=== PATIENT | female | born 1980 | race Caucasian/White ===

== ENCOUNTER 2019-12-12 17:53 | Emergency (ER) | payer BC ==
[2019-12-12] MEDS ORDERED: Sodium Chloride 0.9% 10 ML Syringe FLUSH PRN (18:29)
[2019-12-12] MEDS ORDERED: Sodium Chloride 0.9% 2.5 ML Syringe FLUSH PRN (18:29)
[2019-12-12] MEDS ORDERED: Ketorolac 30 MG/ML SDV IVPUSH ONE (18:30)
[2019-12-12 19:05] LABS: BLOOD UREA NITROGEN,BUN 10 mg/dL (7.0-18.0); CARBON DIOXIDE,CO2 26.6 mmol/L (21.0-32.0); CHLORIDE,CL 102 mmol/L (98-107); GLUCOSE RANDOM 103 mg/dL (74-106); POTASSIUM,K 3.7 mmol/L (3.5-5.1); SODIUM,NA 141 mmol/L (136-145)
--- NOTE | 2019-12-12 19:22 | EDM.PDOC ---
<RayMiguel - Last Filed: 12/13/19 00:53> ED HPI GENERAL MEDICAL PROBLEM - General Chief Complaint: Abdominal Pain Stated Complaint: ABDOMINAL PAIN Time Seen by Provider: 12/12/19 18:05 Source of Information: Reports: Patient History Limitations: Reports: No Limitations - Related Data Allergies Allergy/AdvReac Type Severity Reaction Status Date / Time clonidine HCl [From Catapres] Allergy Rash Verified 12/12/19 18:26 morphine AdvReac Vomiting Verified 12/12/19 18:26 Home Meds: Home Meds Levothyroxine 25 mcg PO DAILY 12/12/19 [History] Prazosin HCl [Prazosin] 2 mg PO DAILY 12/12/19 [History] Sertraline [Zoloft] 150 mg PO DAILY 12/12/19 [History] methylPREDNISolone [Medrol] 4 mg PO DAILY 12/12/19 [History] Social & Family History - Family History Family Medical History: Noncontributory ED ROS GENERAL - Review of Systems Review Of Systems: See Below ED EXAM, GI/ABD - Physical Exam Exam: See Below Course - Vital Signs Text/Narrative:: I assumed care of this patient at [address] Felipe. In brief, this is a 39-year-old female who is approximately 3 weeks status post laparoscopic hysterectomy. She presents to the emergency department complaining of midline abdominal pain and a gush of vaginal fluids after tripping. Labs reassuring. Given Toradol prior to my arrival. Awaiting CT imaging of the abdomen/pelvis. I reviewed the labs. Urinalysis shows trace leukocyte esterase and trace blood but the patient has no symptoms of cystitis. Other labs are reassuring. I gave some fentanyl for pain with good relief. I reexamined the patient, abdomen is soft and nondistended. CT abdomen/pelvis shows a small amount of free fluid in the pelvis, but otherwise no evidence of a postoperative complication. I did perform a pelvic examination with a speculum (with an RN hand rug cleaner), I did not note any drainage, fluid, or bleeding. I spoke with our on-call REPACKER Dr. Santos at 2210 who feels that the fluid leakage is likely postoperative after irrigation that was instilled during the surgery. He is reassured that the patient is afebrile, has no leukocytosis, and has no radiographic evidence of a complication on CT scans. We will plan to discharge her home. She states that she has leftover ibuprofen and Percocet and wants to take these medications at home. She will follow-up with her OB/ FINANCIAL ADMINISTRATOR in [place] in the next few weeks at her scheduled appointment. Strict ED return precautions were provided. Last Recorded V/S: Last Vital Signs Temp 98.2 F 12/12/19 22:30 Pulse 72 12/12/19 22:30 Resp 18 12/12/19 22:30 BP 133/82 12/12/19 22:30 Pulse Ox 98 12/12/19 22:30 - Orders/Labs/Meds Orders: Active Orders 24 hr Category Date Time Status Pelvic Exam, Set Up [RC] ASDIRECTED Care 12/12/19 20:51 Active Saline Lock Insert [OM.PC] Stat Oth 12/12/19 18:29 Ordered Labs: Laboratory Tests 12/12/19 12/12/19 12/12/19 Range/Units 18:20 18:30 18:30 WBC 9.81 (4.0-11.0) K/uL RBC 4.92 (4.30-5.90) M/uL Hgb 15.2 (12.0-16.0) g/dL Hct 45.9 (36.0-46.0) % MCV 93.3 (80.0-98.0) fL MCH 30.9 (27.0-32.0) pg MCHC 33.1 (31.0-37.0) g/dL RDW Std Deviation 44.6 (28.0-62.0) fl RDW Coeff of Nevaeh 13 (11.0-15.0) % Plt Count 323 (150-400) K/uL MPV 10.20 (7.40-12.00) fL Neut % (Auto) 55.1 (48.0-80.0) % Lymph % (Auto) 37.7 (16.0-40.0) % [place] % (Auto) 6.3 (0.0-15.0) % Eos % (Auto) 0.7 (0.0-7.0) % Baso % (Auto) 0.2 (0.0-1.5) % Neut # (Auto) 5.4 (1.4-5.7) K/uL Lymph # (Auto) 3.7 H (0.6-2.4) K/uL [place] # (Auto) 0.6 (0.0-0.8) K/uL Eos # (Auto) 0.1 (0.0-0.7) K/uL Baso # (Auto) 0.0 (0.0-0.1) K/uL Nucleated RBC % 0.0 /100WBC Nucleated RBCs # 0 K/uL Sodium 141 (136-145) mmol/L Potassium 3.7 (3.5-5.1) mmol/L Chloride 102 (98-107) mmol/L Carbon Dioxide 26.6 (21.0-32.0) mmol/L BUN 10 (7.0-18.0) mg/dL Creatinine 0.8 (0.6-1.0) mg/dL Est Cr Clr Drug Dosing 93.63 mL/min Estimated GFR (MDRD) > 60.0 ml/min Glucose 103 (74-106) mg/dL Calcium 8.9 (8.5-10.1) mg/dL Total Bilirubin 0.4 (0.2-1.0) mg/dL AST 21 (15-37) IU/L ALT 46 (14-63) IU/L Alkaline Phosphatase 63 (46-116) U/L Total Protein 7.7 (6.4-8.2) g/dL Albumin 4.4 (3.4-5.0) g/dL Globulin 3.3 (2.6-4.0) g/dL Albumin/Globulin Ratio 1.3 (0.9-1.6) Urine Color YELLOW Urine Appearance SLT CLOUDY Urine pH 7.0 (5.0-8.0) Ur Specific [place] 1.020 (1.001-1.035) Urine Protein NEGATIVE (NEGATIVE) mg/dL Urine Glucose (UA) NEGATIVE (NEGATIVE) mg/dL Urine Ketones NEGATIVE (NEGATIVE) mg/dL Urine Occult Blood TRACE-INTACT H (NEGATIVE) Urine Nitrite NEGATIVE (NEGATIVE) Urine Bilirubin NEGATIVE (NEGATIVE) Urine Urobilinogen 0.2 (<2.0) EU/dL Ur Leukocyte Esterase TRACE H (NEGATIVE) Urine RBC 1-3 (0-2/HPF) Urine WBC 3-6 (0-5/HPF) Ur Epithelial Cells MODERATE (NONE-FEW) Urine Bacteria FEW (NEGATIVE) Meds: Medications Discontinued Medications Generic Name Dose Route Start Last Admin Trade Name Freq PRN Reason Stop Dose Admin Fentanyl 50 mcg 12/12/19 20:50 12/12/19 21:17 Fentanyl IVPUSH 12/12/19 20:51 50 mcg ONETIME ONE Administration Iopamidol 100 ml 12/12/19 19:55 12/12/19 19:58 Isovue Multipack-370 (76%) IVPUSH 12/12/19 19:56 100 ml ONETIME STA Administration Ketorolac Tromethamine 30 mg 12/12/19 18:30 12/12/19 18:49 Toradol IVPUSH 12/12/19 18:31 15 mg ONETIME ONE Administration Sodium Chloride 10 ml 12/12/19 18:29 12/12/19 18:50 Saline Flush FLUSH 10 ml ASDIRECTED PRN Administration Keep Vein Open Sodium Chloride 2.5 ml 12/12/19 18:29 12/12/19 18:50 Saline Flush FLUSH 2.5 ml ASDIRECTED PRN Administration Keep Vein Open Departure - Departure Time of Disposition: 22:21 Disposition: Home, Self-Care 01 Condition: Good Clinical Impression: Post-operative pain - Discharge Information *PRESCRIPTION DRUG MONITORING PROGRAM REVIEWED*: Not Applicable *COPY OF PRESCRIPTION DRUG MONITORING REPORT IN PATIENT MAXINE: Not Applicable Instructions: Acute Pain, Adult Referrals: PCP,None [Primary Care Provider] - (Follow-up with your REPACKER at your neck scheduled appointment.) Forms: ED Department Discharge Additional Instructions: Thank you for choosing the [facility] emergency department in [place] for your medical needs today. It was a pleasure caring for you. You were seen in the emergency department for abdominal pain and vaginal fluid leakage. We suspect that this is due to the fluid that was placed during her surgery. Your blood work, urinalysis, and CT scans are reassuring. I recommend that you take your prescribed ibuprofen and Percocet as needed at home. Follow-up with your REPACKER and your scheduled appointment. Return to the emergency department immediately if your symptoms worsen. Please return the emergency department immediately if your symptoms worsen or if you feel worse. The following information is given to patients seen in the emergency department who are being discharged. This information is to outline your options for follow -up care. We provide all patients seen in our emergency department with a follow -up referral. The need for follow-up, as well as the timing and circumstances, are variable depending upon the specifics of your emergency department visit. If you don't have a primary care physician on staff, we will provide you with a referral. We always advise you to contact your personal physician following an emergency department visit to inform them of the circumstance of the visit and for follow-up with them and/or the need for any referrals to a consulting specialist. The emergency department will also refer you to a specialist when appropriate. This referral assures that you have the opportunity for follow-up care with a specialist. All of these measure are taken in an effort to provide you with optimal care, which includes your follow-up. Under all circumstances we always encourage you to contact your private physician who remains a resource for coordinating your care. When calling for follow-up care, please make the office aware that this follow-up is from your recent emergency room visit. If for any reason you are refused follow-up, please contact the [facility] Emergency Department at and asked to speak to the emergency department charge nurse. If you do not have a primary care physician that is caring for you, you can contact these clinics below to set up an appointment to establish care: [facility] [address] [place] [id number] [address] [address] Sepsis Event Note (ED) - Focused Exam Vital Signs: Vital Signs Temp Pulse Resp BP Pulse Ox 12/12/19 22:30 98.2 F 72 18 133/82 98 12/12/19 21:17 82 18 134/76 97 - My Orders Last 24 Hours: My Active Orders 12/12/19 18:29 Saline Lock Insert [OM.PC] Stat - Assessment/Plan Last 24 Hours: My Active Orders 12/12/19 18:29 Saline Lock Insert [OM.PC] Stat <Ekta Felipe - Last Filed: 12/13/19 07:28> ED HPI GENERAL MEDICAL PROBLEM - History of Present Illness INITIAL COMMENTS - FREE TEXT/NARRATIVE: History of present illness: 39-year-old female presenting with lower abdominal pain starting shortly prior to arrival here. She reports she was walking, tripped over her dog and caught herself but suddenly had lower abdominal pain. She did not strike her abdomen or any other part. She did not actually fall. Shortly thereafter she had a large amount of fluid leak from her vagina and then started to develop some vaginal bleeding. [employer] than a period. 3 weeks ago she had a hysterectomy. Review of systems: As per history of present illness and below otherwise all systems reviewed and negative. Past medical history: As per history of present illness and as reviewed below otherwise noncontributory. Surgical history: As per history of present illness and as reviewed below otherwise noncontributory. To me Social history: No reported history of drug or alcohol abuse. Family history: As per history of present illness and as reviewed below otherwise noncontributory. Physical exam: GEN: no acute distress, well appearing HEENT: Atraumatic, normocephalic, mucous membranes moist, Neck: supple, nontender, trachea midline. Lungs: No respiratory distress. Heart: RRR Abdomen: Soft, nondistended, tenderness, greatest in the suprapubic area. Does not appear distended, no rigidity or guarding. Back: nontender Extremities: Atraumatic. Neurovascularly intact. Neuro: Awake, alert, oriented. Neuro Exam nonfocal. Skin: warm, dry, no lesions Diagnostics: [] Therapeutics: [] MDM: Impression: [] Plan: Patient signed out to Dr. Bell at [address] results. Definitive disposition and diagnosis as appropriate pending reevaluation and review of above. Pelvic Pain Score (Numeric/FACES): 8 Past Medical History Respiratory History: Reports: Asthma - Infectious Disease History Infectious Disease History: Reports: None - Past Surgical History Other HEENT Surgeries/Procedures: ADENOIDECTOMY AND WISDOM TEETH REMOVED Female Surgical History: Reports: Hysterectomy Social & Family History - Family History Family Medical History: Noncontributory - Tobacco Use Smoking Status *Q: Never Smoker - Caffeine Use Caffeine Use: Reports: None - Recreational Drug Use Recreational Drug Use: No Sepsis Event Note (ED) - Evaluation Sepsis Screening Result: No Definite Risk
[2019-12-12] MEDS ORDERED: Iopamidol 755 MG/ML 500 ML Multipack Bottle IVPUSH STA (19:55)
--- NOTE | 2019-12-12 20:30 | CT ---
INDICATION: Abdominal pain. Three weeks status post hysterectomy. TECHNIQUE: CT abdomen and pelvis acquired with 100 cc Isovue 370 IV contrast. COMPARISON: None. FINDINGS: Lower chest: Unremarkable. Liver: Unremarkable. Normal in size and attenuation. No masses. Gallbladder and bile ducts: Unremarkable. No stones or inflammation. No biliary dilatation. Pancreas: Unremarkable. No mass or inflammation. Spleen: Unremarkable. Normal in size. No masses. Adrenal glands: Unremarkable. No nodules. Kidneys: Unremarkable. No masses, stones, or hydronephrosis. GI tract: Unremarkable. Normal in caliber. No sign of mass or inflammation. Normal appendix. Vasculature: Unremarkable. Mesenteric arteries are patent. Lymph nodes: No lymphadenopathy. Omentum/Peritoneum/Abdominal Wall: Unremarkable. No sign of mass or infiltration. No free air or significant free fluid. Pelvis: Uterus has been resected. There is a small amount of free fluid in the pelvis. No signs of acute inflammation or abscess. Bones: Unremarkable for age. IMPRESSION: Small amount of free-fluid is dependent in the pelvis. No sign of abscess or other postoperative complication from a recent hysterectomy. Remainder of the exam is unremarkable. No other finding to explain abdominal pain. Please note that all CT scans at this facility use dose modulation, iterative reconstruction, and/or weight-based dosing when appropriate to reduce radiation dose to as low as reasonably achievable. Dictated by Colin Last MD @ Dec 12 2019 8:16PM Signed by Dr. Colin Last @ Dec 12 2019 8:28PM
[2019-12-12] MEDS ORDERED: fentaNYL 50 MCG/ML SDV IVPUSH ONE (20:50)
[2019-12-13 01:34] VITALS: BP 133/82; PULSE 72
== END 2019-12-12 22:30 | disposition home or self-care (01) ==
LOC: MW.ED 17:53
DX: G89.18 Other acute postprocedural pain (principal); R10.30 Lower abdominal pain, unspecified; Z90.710 Acquired absence of both cervix and uterus; Z88.5 Allergy status to narcotic agent; Z88.8 Allergy status to other drugs, medicaments and biological substances; Z79.899 Other long term (current) drug therapy
CPT/HCPCS: 36415; 74177; 80053; 81001; 85025; 96374; 96375; 99284; J1885; J3010; Q9967